=== PATIENT | male | born 1965 | race Caucasian/White ===

== ENCOUNTER 2020-07-23 10:01 | Outpatient (REF) | payer BC, SELFPAY ==
[2020-07-23 11:21] LABS: Hematocrit 42.3 % (42-52); Hemoglobin 13.9 g/dl (14.0-18.0); Mean Corpuscular HGB Conc 32.9 g/dl (31.0-36.0); Mean Corpuscular Hemoglobin 29.5 pg (27.0-33.0); Mean Corpuscular Volume 89.8 fL (80-98); Mean Platelet Volume 12.3 fL (9.4-12.4); Platelet Count 168 X10*3/uL (160-400); Red Blood Count 4.71 X10*6/uL (4.60-5.80); Red Cell Distribution Width 12.6 % (11.0-16.0); White Blood Count 5.3 X10*3/uL (4.8-10.8)
[2020-07-23 11:36] LABS: Glucose Urine UA NEG (NEG); Leukocyte Esterase Urine NEG (NEG); Nitrite Urine NEG (NEG); PH 6.5 (5.0-8.0); Urine Blood NEG (NEG); Urine Ketones NEG (NEG); Urine Protein NEG (NEG-TRACE)
[2020-07-23 11:39] LABS: Appearance Urine CLEAR; Color Urine YELLOW
[2020-07-23 12:08] LABS: Mucus Urine 2+ /LPF; WBC Urine 0-2 /HPF (0-4)
[2020-07-23 12:16] LABS: Alanine Aminotransferase 29 U/L (0-40); Albumin Level 4.2 g/dL (3.5-5.0); Alkaline Phosphatase 102 U/L (39-117); Anion Gap 12 (12-20); Aspartate Amino Transferase 21 U/L (5-37); Bilirubin Total 0.6 mg/dL (0.0-1.0); Blood Urea Nitrogen 11 mg/dL (9-16); Calcium 9.2 mg/dL (8.4-10.2); Carbon Dioxide 28 mmol/L (22-29); Chloride 106 mmol/L (96-108); Cholesterol 168 mg/dL; Estimated Glomerular Filt Rate > 60; Glucose Fasting 93 mg/dL (60-99); HDL Cholesterol 42 mg/dL; LDL Cholesterol Calculated 103 mg/dl; Potassium 4.2 mmol/L (3.3-5.1); Sodium 142 mmol/L (135-145); Total Protein 6.9 g/dL (6.5-8.0); Triglycerides 118 mg/dL
[2020-07-23 12:50] LABS: Prostate Specific Antigen Scr 1.77 ng/mL (<0.05-4.0)
== END 2020-07-23 10:02 | disposition home or self-care (01) ==
LOC: HO.HMGCLDS 10:01
PROVIDERS: PCP Internal Medicine; Visit Provider Internal Medicine
DX: Z00.00 Encounter for general adult medical examination without abnormal findings (principal); E78.5 Hyperlipidemia, unspecified; R16.0 Hepatomegaly, not elsewhere classified; Z12.5 Encounter for screening for malignant neoplasm of prostate
CPT/HCPCS: 36415; 80053; 80061; 81001; 84153; 85027

== ENCOUNTER 2020-07-28 07:31 | Outpatient (REF) | payer BC, SELFPAY ==
--- NOTE | ~2020-07-28 | MR_ITS ---
EXAMINATION: MR ABDOMEN WITHOUT AND WITH CONTRAST CLINICAL INFORMATION: Hepatomegaly. COMPARISON: Previous abdominal ultrasound July [address] of the abdomen and pelvis July 2016 TECHNIQUE: MR abdomen was performed without and with use of 10 mL intravenous Gadavist gadolinium contrast. Postcontrast images are performed in multiphase dynamic sequences. Imaging was performed in 3 planes. FINDINGS: LUNG BASES: The visualized lung bases are unremarkable. LIVER, GALLBLADDER, AND BILIARY TREE: The liver is normal in size, shape and signal. There are 2 liver lesions. There is a 1.5 cm lesion in the high right lobe of the liver. This is low signal on T1-weighted sequences, high signal on T2-weighted sequences and demonstrates delayed peripheral puddling enhancement consistent with a benign hemangioma. There is a second smaller lesion in the peripheral lateral segment of the left lobe of the liver. This measures 1 cm. This is low signal on T1-weighted sequences, high signal on T2-weighted sequences and demonstrates delayed peripheral enhancement consistent with a benign hemangioma. This is unchanged from previous CT scan. This was not appreciated by ultrasound. No other liver lesion is seen. The gallbladder is normal-appearing. There is no biliary duct dilatation. PANCREAS: There is a tiny cyst in the body of the pancreas. This measures 3 mm and abuts the main pancreatic duct. The pancreas is otherwise normal. The main pancreatic duct does not appear dilated. SPLEEN: Normal. ADRENAL GLANDS: Normal. KIDNEYS AND URETERS: There are bilateral renal peripelvic cysts. The kidneys are otherwise unremarkable. GASTROINTESTINAL TRACT: No bowel obstruction. No ascites or fluid collection. ABDOMINAL WALL: No significant hernia is appreciated. LYMPH NODES: No lymphadenopathy. VASCULAR: Unremarkable. OSSEOUS STRUCTURES: Marrow signal normal. There is degenerative disc disease of the spine. MR/MR abdomen wo/w con IMPRESSION: Stable liver hemangiomas. The liver is otherwise normal. Bilateral renal peripelvic cysts. Small 3 mm cyst in the body of the pancreas.
== END 2020-07-28 07:32 | disposition home or self-care (01) ==
LOC: HO.MRI 07:31
PROVIDERS: Visit Provider Internal Medicine
DX: R16.0 Hepatomegaly, not elsewhere classified (principal)
CPT/HCPCS: 74183; A9585

== ENCOUNTER 2021-07-26 09:44 | Outpatient (REF) | payer BC, SELFPAY ==
[2021-07-26 11:41] LABS: Hematocrit 42.1 % (42.0-52.0); Mean Corpuscular HGB Conc 33.3 g/dl (31.0-36.0); Mean Corpuscular Hemoglobin 29.8 pg (27.0-33.0); Mean Corpuscular Volume 89.6 fL (80.0-98.0); Mean Platelet Volume 12.1 fL (9.4-12.4); Platelet Count 156 X10*3/uL (160-400); Red Cell Distribution Width 12.5 % (11.0-16.0); White Blood Count 4.9 X10*3/uL (4.8-10.8)
[2021-07-26 11:43] LABS: Appearance Urine CLEAR; Color Urine YELLOW; Glucose Urine UA NEG (NEG); Leukocyte Esterase Urine NEG (NEG); Nitrite Urine NEG (NEG); PH 5.5 (5.0-8.0); Specific Gravity - Urine 1.025 (1.005-1.025); Urine Blood TRACE (NEG); Urine Ketones NEG (NEG); Urine Protein NEG (NEG-TRACE)
[2021-07-26 12:08] LABS: Mucus Urine 2+ /LPF; RBC Urine 0-2 /HPF (0); WBC Urine 0 /HPF (0-4)
[2021-07-26 12:15] LABS: Prostate Specific Antigen Scr 1.44 ng/mL (<0.05-4.0)
[2021-07-26 12:24] LABS: Alanine Aminotransferase 25 U/L (0-40); Alkaline Phosphatase 92 U/L (39-117); Anion Gap 12 (12-20); Aspartate Amino Transferase 22 U/L (5-37); Bilirubin Total 0.7 mg/dL (0.0-1.0); Blood Urea Nitrogen 12 mg/dL (9-16); Calcium 9.4 mg/dL (8.4-10.2); Carbon Dioxide 27 mmol/L (22-29); Chloride 106 mmol/L (96-108); Cholesterol 183 mg/dL; Estimated Glomerular Filt Rate > 60; Glucose Fasting 97 mg/dL (60-99); HDL Cholesterol 49 mg/dL; LDL Cholesterol Calculated 111 mg/dl; Potassium 4.2 mmol/L (3.3-5.1); Sodium 141 mmol/L (135-145); Total Protein 6.9 g/dL (6.5-8.0); Triglycerides 119 mg/dL
== END 2021-07-26 09:45 | disposition home or self-care (01) ==
LOC: HO.HMGCLDS 09:44
PROVIDERS: PCP Internal Medicine; Visit Provider Internal Medicine
DX: Z00.00 Encounter for general adult medical examination without abnormal findings (principal); K21.9 Gastro-esophageal reflux disease without esophagitis; E78.5 Hyperlipidemia, unspecified; Z12.5 Encounter for screening for malignant neoplasm of prostate
CPT/HCPCS: 36415; 80053; 80061; 81001; 84153; 85027

== ENCOUNTER 2022-06-23 08:10 | Outpatient (REF) | payer OTHER, SELFPAY ==
[2022-06-23 11:19] LABS: Appearance Urine Clear; Color Urine Yellow; Glucose Urine UA Negative (Negative); Leukocyte Esterase Urine Negative (Negative); Nitrite Urine Negative (Negative); PH 5.5 (5.0-9.0); Specific Gravity - Urine 1.025 (1.005-1.025); UMIC TRIGGER UA YES; Urine Blood Trace (Negative); Urine Ketones Negative (Negative); Urine Protein Negative (Neg-Trace)
[2022-06-23 11:26] LABS: Bacteria Urine None Seen (None Seen); Hyaline Casts Urine 0-2 /LPF (0-2); Squamous Epithelial Cell Urine 0-2 /HPF (0-2); WBC Urine 0-5 /HPF (0-5)
[2022-06-23 13:08] LABS: Alanine Aminotransferase 26 U/L (0-40); Albumin Level 3.9 g/dL (3.5-5.0); Alkaline Phosphatase 92 U/L (39-117); Anion Gap 11 (12-20); Aspartate Amino Transferase 26 U/L (5-37); Bilirubin Total 0.7 mg/dL (0.0-1.0); Blood Urea Nitrogen 16 mg/dL (9-16); Carbon Dioxide 26 mmol/L (22-29); Chloride 107 mmol/L (96-108); Cholesterol 200 mg/dL; Estimated Glomerular Filt Rate > 60; Glucose Fasting 95 mg/dL (60-99); HDL Cholesterol 62 mg/dL; LDL Cholesterol Calculated 126 mg/dl; Sodium 140 mmol/L (135-145); Total Protein 6.6 g/dL (6.5-8.0); Triglycerides 62 mg/dL
[2022-06-23 13:16] LABS: Prostate Specific Antigen Scr 3.54 ng/mL (<0.05-4.0)
== END 2022-06-23 08:11 | disposition home or self-care (01) ==
LOC: HO.HMGCLDS 08:10
PROVIDERS: PCP Internal Medicine; Visit Provider Internal Medicine
DX: Z00.00 Encounter for general adult medical examination without abnormal findings (principal); E78.5 Hyperlipidemia, unspecified; K21.9 Gastro-esophageal reflux disease without esophagitis; Z12.5 Encounter for screening for malignant neoplasm of prostate
CPT/HCPCS: 36415; 80053; 80061; 81001; 84153

== ENCOUNTER 2022-08-15 16:10 | Outpatient (REF) | payer OTHER, SELFPAY ==
--- NOTE | ~2022-08-15 | US_ITS ---
EXAMINATION: US RETROPERITONEAL COMPLETE (RENAL) CLINICAL INFORMATION: Other microscopic hematuria. COMPARISON: MR abdomen without and with contrast 07/28/2020. Ultrasound abdomen complete 07/29/2018. TECHNIQUE: Real-time imaging of the kidneys and bladder. FINDINGS: RIGHT KIDNEY: 12.7 x 6.8 x 6.8 cm (SAG x AP x TRV). The kidney is normal in size, contour, and echogenicity. Renal cortical thickness is normal. No calculi or focal parenchymal lesions. No hydronephrosis. Multiple simple parapelvic cysts. No imaging follow-up is recommended. LEFT KIDNEY: 12.9 x 6.9 x 9.1 cm (SAG x AP x TRV). The kidney is normal in size, contour, and echogenicity. Renal cortical thickness is normal. No calculi or focal parenchymal lesions. No hydronephrosis. Multiple simple parapelvic cysts. No imaging follow-up is recommended. BLADDER: Well distended and normal. Bilateral ureteral jets are demonstrated. Prevoid bladder volume is 499 mL. Postvoid bladder volume is 125 mL. ADDITIONAL FINDINGS: Enlarged prostate measuring 75 mL. US/US retroperitoneal comp IMPRESSION: Enlarged prostate measuring 75 mL. Distended urinary bladder with postvoid residual volume of 125 mL.
== END 2022-08-15 16:11 | disposition home or self-care (01) ==
LOC: HO.US 16:10
PROVIDERS: PCP Internal Medicine; Visit Provider Internal Medicine
DX: R31.29 Other microscopic hematuria (principal)
CPT/HCPCS: 76770

== ENCOUNTER 2022-08-17 15:13 | Outpatient (REF) | payer OTHER, SELFPAY ==
--- NOTE | ~2022-08-17 | US_ITS ---
Examination: US PROSTATE CLINICAL INDICATION: Microscopic hematuria, elevated PSA. COMPARISON: 08/15/2022. TECHNIQUE: Ultrasound imaging of the prostate gland was performed transurethrally. FINDINGS: There is an irregular enlarged prostate gland with volume of 100 mL. There is echogenic calcification in the central gland on either side of the urethra. Visualized seminal vesicles are unremarkable. US/US prostate volume IMPRESSION: Limited exam as patient was not prepped. There was some bowel peristalsis seen. The prostate is significantly enlarged measuring 100ml volume. On the previous exam, it measured 75 mL. There is dystrophic calcification in the central gland.
== END 2022-08-17 15:14 | disposition home or self-care (01) ==
LOC: HO.US 15:13
PROVIDERS: Visit Provider Internal Medicine
DX: R31.29 Other microscopic hematuria (principal); R97.20 Elevated prostate specific antigen [PSA]
CPT/HCPCS: 76872

== ENCOUNTER 2023-02-10 07:25 | Outpatient (REF) | payer OTHER, SELFPAY ==
[2023-02-10 11:55] LABS: Cholesterol 164 mg/dL (<200); HDL Cholesterol 49 mg/dL (>40); LDL Cholesterol Calculated 92 mg/dL (<100); Triglycerides 119 mg/dL (<150)
[2023-02-10 12:16] LABS: PSA,Total (Free>4and<10) 1.47 ng/mL (0.00-4.00)
== END 2023-02-10 07:26 | disposition home or self-care (01) ==
LOC: HO.HMGCLDS 07:25
PROVIDERS: PCP Internal Medicine; Visit Provider Internal Medicine
DX: Z12.5 Encounter for screening for malignant neoplasm of prostate (principal); R97.20 Elevated prostate specific antigen [PSA]; R16.0 Hepatomegaly, not elsewhere classified; E78.5 Hyperlipidemia, unspecified
CPT/HCPCS: 36415; 80061; 84153

== ENCOUNTER 2023-07-28 07:59 | Outpatient (REF) | payer OTHER, SELFPAY ==
[2023-07-28 11:06] LABS: MANUAL DIFF FLAG NO
[2023-07-28 11:15] LABS: Basophils Percent Auto 0.8 % (0-2); Eosinophils Absolute Auto 0.4 X10*3/uL (0.0-0.4); Eosinophils Percent Auto 7.4 % (0-4); Hematocrit 41.3 % (42.0-52.0); Hemoglobin 13.8 g/dl (14.0-18.0); Imm Gran Abs Auto 0.02 X10*3/uL (0.00-0.03); Imm Gran Pct Auto 0.4 % (0.0-0.4); Lymphocytes Absolute Auto 1.4 X10*3/uL (1.2-4.9); Lymphocytes Percent Auto 29.5 % (20-40); Mean Corpuscular HGB Conc 33.4 g/dl (31.0-36.0); Mean Corpuscular Hemoglobin 30.3 pg (27.0-33.0); Mean Corpuscular Volume 90.6 fL (80.0-98.0); Mean Platelet Volume 11.6 fL (9.4-12.4); Monocytes Absolute Auto 0.5 X10*3/uL (0.1-1.2); Monocytes Percent Auto 10.7 % (2-11); Neutrophils Absolute Auto 2.5 x10*3/uL (2.0-8.3); Neutrophils Percent Auto 51.2 % (45-73); Platelet Count 170 X10*3/uL (160-400); Red Blood Count 4.56 X10*6/uL (4.60-5.80); Red Cell Distribution Width 12.7 % (11.0-16.0); White Blood Count 4.8 X10*3/uL (4.8-10.8)
[2023-07-28 11:26] LABS: Alanine Aminotransferase 32 U/L (0-40); Alkaline Phosphatase 89 U/L (39-117); Anion Gap 10 (12-20); Aspartate Amino Transferase 28 U/L (5-37); Bilirubin Total 0.7 mg/dL (0.0-1.0); Blood Urea Nitrogen 14 mg/dL (9-16); Calcium 9.3 mg/dL (8.4-10.2); Carbon Dioxide 26 mmol/L (22-29); Chloride 108 mmol/L (96-108); Cholesterol 172 mg/dL (<200); Estimated Glomerular Filt Rate > 60; Glucose Fasting 95 mg/dL (60-99); HDL Cholesterol 61 mg/dL (>40); LDL Cholesterol Calculated 99 mg/dL (<100); Sodium 140 mmol/L (135-145); Total Protein 6.9 g/dL (6.5-8.0); Triglycerides 64 mg/dL (<150)
[2023-07-28 11:42] LABS: PSA,Total (Free>4and<10) 2.34 ng/mL (0.00-4.00)
== END 2023-07-28 08:00 | disposition home or self-care (01) ==
LOC: HO.HMGCLDS 07:59
PROVIDERS: PCP Internal Medicine; Visit Provider Internal Medicine
DX: Z12.5 Encounter for screening for malignant neoplasm of prostate (principal); R97.20 Elevated prostate specific antigen [PSA]; R16.0 Hepatomegaly, not elsewhere classified; E78.5 Hyperlipidemia, unspecified
CPT/HCPCS: 36415; 80053; 80061; 84153; 85025

== ENCOUNTER 2023-07-31 11:40 | Outpatient (AMB) | payer OTHER, SELFPAY ==
[2023-07-31 11:42] VITALS: BP 126/78; PULSE 69; O2SAT 97; BMI 31.2
--- NOTE | 2023-07-31 11:42 | A.OFFPC_ITS ---
Vital Signs 07/31/23 11:42 Height 5 ft 11 in Weight 224 lb BMI 31.2 BP 126/78 Blood Pressure Location Lt brachial Position Sitting Pulse 69 Pulse Source Pulse Oximeter Pulse Oximetry (%) 97 Oxygen Delivery Method Room Air Intake Visit Reasons: PE Intake Note: Pt is here today for PE. Allergies No Known Allergies Allergy (Verified 07/31/23 11:47) Medication List - Last Reconciled 07/31/23 by Terese Edwards MD atorvastatin 80 mg PO DAILY Tobacco use date assessed: 07/31/23 Dental Screening Dental Screen Date: 07/31/23 Did you have a dental visit in the last 12 months?: Yes Did you have a dental problem in the last 6 months where you did not have access to dental care?: No Was dental information given to patient?: Patient has dentist HPI PE HPI Details Patient presents for physical. He complains of recurrent GERD symptoms since stopped taking omeprazole for a few months ago. He denies dysphagia odynophagia hematochezia melena abdominal pain. [facility] Medical History (Updated 07/31/23 @ 12:44 by Terese Edwards MD) Abdominal pain Annual physical exam Liver mass Microscopic hematuria Surgical History (Updated 07/31/23 @ 12:43 by Terese Edwards MD) History of esophagogastroduodenoscopy (EGD) H/O colonoscopy Family History Father No problems noted. Mother No problems noted. Social History Housing: House Alcohol intake: current Alcohol intake frequency: a few times a month Patient Tobacco Use Status: Former Tobacco user e-Cigarette/Vaping Use: Never Used Current occupational status: employed Cognitive needs: No Hearing needs: No Vision needs: No Questionnaire PHQ-9 Over the last 2 weeks, how often have you been bothered by any of the following problems? 1. Little interest or pleasure in doing things: not at all 2. Feeling down, depressed, or hopeless: not at all 3. Trouble falling or staying asleep, or sleeping too much: not at all 4. Feeling tired or having little energy: not at all 5. Poor appetite or overeating: not at all 6. Feeling bad about yourself - or that you are a failure or have let yourself or your family down: not at all 7. Trouble concentrating on things, such as reading the newspaper or watching television: not at all 8. Moving or speaking so slowly that other people could have noticed. Or the opposite - being so fidgety or restless that you have been moving around a lot more than usual: not at all 9. Thoughts that you would be better off or of hurting yourself in some way: not at all Total score: 0 Depression Screening Interpretation: Negative Depression Screening Done: Yes Source: Developed by Drs. Diallo Elliott, Gudelia Pino, Garfield Coughlin and colleagues, with an educational fuad from [employer]. Thrive Questionnaire Date Thrive assessed: 07/31/23 I am a: Patient What is your living situation today?: I have a steady place to live Within the past 12 months, did the food you bought not last and you didn't have the money to get more?: Never true Within the past 12 months, did you worry whether your food would run out before you got money to buy more?: Never true Do you have trouble paying for medicines?: No Do you have trouble getting transportation to medical appointments?: No Do you have trouble paying your heating and electricity bill?: No Do you have trouble taking care of your child, family member or friend?: No Do you have trouble with day-to-day activities such as bathing, preparing meals, shopping, managing finances, etc.?: No Are you currently unemployed and looking for a job?: No Are you interested in more education?: No Please select the resources that you would like help with: None Currently or been in a relationship where the following occur: no concerns reported THRIVE Score: 0 AUDIT C Alcohol Use Questionnaire (AUDIT-C) 1. How often do you have a drink containing alcohol?: Monthly or less 2. How many drinks containing alcohol do you have on a typical day when you are drinking?: 1 or 2 3. How often do you have six or more drinks on one occasion?: Never Total Score: 1 MARCUS-7 AMB Questionnaire MARCUS-7 Date MARCUS - 7 assessed: 07/31/23 Feeling nervous, anxious, or on edge: 0 = Not at all Not being able to stop or control worryin = Not at all Worrying too much about different things: 0 = Not at all Trouble relaxin = Not at all Being so restless that it is hard to sit still: 0 = Not at all Becoming easily annoyed or irritable: 0 = Not at all Feeling afraid as if something awful might happen: 0 = Not at all Total MARCUS-7 score (0-4 normal; 5-9 mild; 10-14 moderate; 15-21 severe): 0 Source: Developed by Drs. Diallo Elliott, Gudelia Pino, Garfield Coughlin and colleagues, with an educational fuad from [employer]. Review of Systems Const All systems reviewed & are unremarkable except as noted in HPI and below Reports no additional complaints Eyes Reports no additional complaints ENT Reports no additional complaints Card Reports no additional complaints Resp Reports no additional complaints GI Reports no additional complaints Reports no additional complaints Skin/Breast Reports system reviewed and no additional complaints, except as documented Physical exam (Primary Care) Vital Signs: Last Vital Signs Pulse 69 07/31/23 11:42 BP 126/78 07/31/23 11:42 Pulse Ox 97 07/31/23 11:42 Oxygen Delivery Method Room Air 07/31/23 11:42 BMI result Body Mass Index 31.2 Tobacco/Smoking Status: Tobacco use Status Tobacco use date assessed 07/31/23 07/31/23 11:49 Patient Tobacco Use Status Former Tobacco user 07/31/23 11:49 e-Cigarette/Vaping Use Never Used 07/31/23 11:42 PHQ-9: PHQ-9 Score PHQ-9: Total score 0 07/31/23 11:50 Depression Screening Interpretation: Negative Thrive Assessment: Date of Thrive Assessment Date Thrive assessed 07/31/23 07/31/23 11:50 Currently or been in a relationship where the following occur: no concerns reported Const General: no acute distress HENMT Head: Yes normal to inspection Ears: hearing grossly normal bilaterally Face and sinus: Yes normal facial exam Mouth: Normal oral and palatal mucosa present Throat: Yes posterior oropharynx normal Eyes General: appearance normal, both eyes and all related structures Neck Neck: Yes no lymphadenopathy and Yes supple Resp Effort & Inspection: normal respiratory effort Auscultation: clear to auscultation bilaterally Cardio Rhythm: regular rhythm Heart sounds: S1 normal heart sound present and S2 normal heart sound present GI Inspection: Yes normal to inspection Palpation (GI): Soft to palpation Percussion: Yes normal to percussion Auscultation: normal bowel sounds Assessment and Plan Assessment & Plan (1) GERD (gastroesophageal reflux disease): Comment: Negative EGD in 2017 Code(s): K21.9 - Gastro-esophageal reflux disease without esophagitis Plan: Patient will restart omeprazole for 1 month and anti GERD diet discussed with the patient (2) Hyperlipidemia, unspecified: Code(s): E78.5 - Hyperlipidemia, unspecified Plan: Continue statin (3) Annual physical exam: Code(s): Z00.00 - Encounter for general adult medical examination without abnormal findings Plan: Well-balanced diet regular physical activity weight loss discussed with the patient. (4) H/O colonoscopy: Comment: 01/2017 Code(s): Z98.890 - Other specified postprocedural states Orders: Orders Lipid Panel 365 Days E78.5 - Hyperlipidemia, unspecified, Z00.00 - Encounter for general adult medical examination without abnormal findings Comprehensive Indian. Panel Fast 365 Days E78.5 - Hyperlipidemia, unspecified, Z00.00 - Encounter for general adult medical examination without abnormal findings Complete Blood Count Auto Diff 365 Days E78.5 - Hyperlipidemia, unspecified, Z00.00 - Encounter for general adult medical examination without abnormal findings PSA,Total (Free>4and<10) 365 Days E78.5 - Hyperlipidemia, unspecified, Z00.00 - Encounter for general adult medical examination without abnormal findings UA w Microscopic 365 Days E78.5 - Hyperlipidemia, unspecified, Z00.00 - Encounter for general adult medical examination without abnormal findings Medications: New omeprazole 40 mg PO DAILY 30 caps 2RF Coding Level of Care Code Est Pt Prev Care 40-64y(08330) Diagnoses GERD (gastroesophageal reflux disease) K21.9 Hyperlipidemia, unspecified E78.5 Annual physical exam Z00.00 H/O colonoscopy Z98.890
== END 2023-07-31 12:47 | disposition home or self-care (01) ==
PROVIDERS: PCP Internal Medicine; Visit Provider Internal Medicine
DX: K21.9 Gastro-esophageal reflux disease without esophagitis (principal); E78.5 Hyperlipidemia, unspecified; Z00.00 Encounter for general adult medical examination without abnormal findings; Z98.890 Other specified postprocedural states
CPT/HCPCS: 99396

== ENCOUNTER 2024-06-11 13:22 | Outpatient (REF) | payer OTHER, SELFPAY ==
[2024-06-11 16:27] LABS: Uric Acid 5.5 mg/dL (3.4-7.0)
[2024-06-11 16:56] LABS: Erythrocyte Sedimentation Rate 9 MM/HR (0-15)
[2024-06-12 20:28] LABS: Lyme Blot 2.82 index
[2024-06-15 14:26] LABS: Lyme Abs Screen POSITIVE
[2024-06-15 14:34] LABS: 18 KD (IgG) Band NON-REACTIVE; 23 KD (IgG) Band NON-REACTIVE; 23 KD (IgM) Band NON-REACTIVE; 28 KD (IgG) Band NON-REACTIVE; 30 KD (IgG) Band NON-REACTIVE; 39 KD (IgM) Band NON-REACTIVE; 39KD (IgG) Band NON-REACTIVE; 41 KD (IgM) Band NON-REACTIVE; 41KD (IgG) Band REACTIVE; 45 KD (IgG) Band REACTIVE; 58 KD (IgG) Band NON-REACTIVE; 66 KD (IgG) Band NON-REACTIVE; 93 KD (IgG) Band NON-REACTIVE; Lyme IgG Blot Interp NEGATIVE (NEGATIVE); Lyme IgM Blot Interp NEGATIVE (NEGATIVE)
== END 2024-06-11 13:23 | disposition home or self-care (01) ==
LOC: HO.HMGCLDS 13:22
PROVIDERS: PCP Internal Medicine; Visit Provider Internal Medicine
DX: G56.03 Carpal tunnel syndrome, bilateral upper limbs (principal)
CPT/HCPCS: 36415; 84550; 85652; 86617; 86618

== ENCOUNTER 2024-06-11 13:22 | Outpatient (AMB) | payer OTHER, SELFPAY ==
[2024-06-11 13:55] VITALS: BP 120/68; PULSE 76; O2SAT 96; BMI 32.1
--- NOTE | 2024-06-11 13:55 | A.OFFPC_ITS ---
Vital Signs 06/11/24 13:55 Height 5 ft 11 in Weight 230 lb BMI 32.1 BP 120/68 Blood Pressure Location Rt brachial Position Sitting Pulse 76 Pulse Source Pulse Oximeter Pulse Oximetry (%) 96 Oxygen Delivery Method Room Air Intake Visit Reasons: L wrist pain, swelling Intake Note: Pt is here today for a sick visit. Pt c/o L hand pain and swelling since Sunday.Pt also c/o tingiling and numbess in his hands. Allergies No Known Allergies Allergy (Verified 06/11/24 13:59) Medication List - Last Reconciled 06/11/24 by Terese Edwards MD atorvastatin 80 mg PO DAILY meloxicam 15 mg PO DAILY omeprazole 40 mg PO DAILY Tobacco use date assessed: 06/11/24 Dental Screening Dental Screen Date: 06/11/24 HPI L wrist pain, swelling HPI Details Pt c/o R wrist and hand pain and swelling for 3 days. He denies any injury. Patient return to work after 2 weeks of vacation and has been using his hands a lot. Patient complains of tingling and numbness sensation, burning pain of both hands: thumb, 2nd and 3rd fingers. 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 Hypertension is controlled on atorvastatin [facility] Medical History (Updated 06/11/24 @ 15:32 by Terese Edwards MD) Abdominal pain Annual physical exam Liver mass Microscopic hematuria Surgical History (Updated 07/31/23 @ 12:43 by Terese Edwards MD) History of esophagogastroduodenoscopy (EGD) H/O colonoscopy Family History Father No problems noted. Mother No problems noted. Social History Housing: House Alcohol intake: current Alcohol intake frequency: a few times a month Patient Tobacco Use Status: Former Tobacco user e-Cigarette/Vaping Use: Never Used service: No Current occupational status: employed Cognitive needs: No Hearing needs: No Vision needs: No Questionnaire PHQ-9 Over the last 2 weeks, how often have you been bothered by any of the following problems? 8. Moving or speaking so slowly that other people could have noticed. Or the opposite - being so fidgety or restless that you have been moving around a lot more than usual: not at all Source: Developed by Drs. Diallo Elliott, Gudelia Pino, Garfield Coughlin and colleagues, with an educational fuad from [employer] Thrive Questionnaire Date Thrive assessed: 07/31/23 I am a: Patient What is your living situation today?: I choose not to answer this question Within the past 12 months, did the food you bought not last and you didn't have the money to get more?: I choose not to answer this question Within the past 12 months, did you worry whether your food would run out before you got money to buy more?: I choose not to answer this question Do you have trouble paying for medicines?: I choose not to answer this question Do you have trouble getting transportation to medical appointments?: I choose not to answer this question Do you have trouble paying your heating and electricity bill?: I choose not to answer this question Do you have trouble taking care of your child, family member or friend?: I choose not to answer this question Do you have trouble with day-to-day activities such as bathing, preparing meals, shopping, managing finances, etc.?: I choose not to answer this question Are you currently unemployed and looking for a job?: I choose not to answer this question Are you interested in more education?: I choose not to answer this question Please select the resources that you would like help with: None Currently or been in a relationship where the following occur: I choose not to answer THRIVE Score: 0 AUDIT C Alcohol Use Questionnaire (AUDIT-C) 1. How often do you have a drink containing alcohol?: Monthly or less 2. How many drinks containing alcohol do you have on a typical day when you are drinking?: 1 or 2 3. How often do you have six or more drinks on one occasion?: Never Total Score: 1 MARCUS-7 AMB Questionnaire MARCUS-7 Date MARCUS - 7 assessed: 07/31/23 Feeling nervous, anxious, or on edge: 0 = Not at all Not being able to stop or control worryin = Not at all Worrying too much about different things: 0 = Not at all Trouble relaxin = Not at all Being so restless that it is hard to sit still: 0 = Not at all Becoming easily annoyed or irritable: 0 = Not at all Feeling afraid as if something awful might happen: 0 = Not at all Total MARCUS-7 score (0-4 normal; 5-9 mild; 10-14 moderate; 15-21 severe): 0 Source: Developed by Drs. Diallo Elliott, Gudelia Pino, Garfield Coughlin and colleagues, with an educational fuad from [employer] Review of Systems Const All systems reviewed & are unremarkable except as noted in HPI and below ENT Reports no additional complaints Card Reports no additional complaints Resp Reports no additional complaints GI Reports no additional complaints Reports no additional complaints Physical exam (Primary Care) Vital Signs: Last Vital Signs Pulse 76 06/11/24 13:55 BP 120/68 06/11/24 13:55 Pulse Ox 96 06/11/24 13:55 Oxygen Delivery Method Room Air 06/11/24 13:55 BMI result Body Mass Index 32.1 Tobacco/Smoking Status: Tobacco use Status Tobacco use date assessed 06/11/24 06/11/24 14:00 Patient Tobacco Use Status Former Tobacco user 06/11/24 13:55 e-Cigarette/Vaping Use Never Used 06/11/24 13:55 Thrive Assessment: Date of Thrive Assessment Date Thrive assessed 07/31/23 06/11/24 13:55 Currently or been in a relationship where the following occur: I choose not to answer Const General: no acute distress HENMT Face and sinus: Yes normal facial exam Neck Neck: Yes supple Resp Effort & Inspection: normal respiratory effort Auscultation: clear to auscultation bilaterally Cardio Rhythm: regular rhythm Heart sounds: S1 normal heart sound present and S2 normal heart sound present Extrem Other: There is a soft tissue swelling, slight erythema and warmth decreased range of motion of the left wrist. Coding Level of Care Code Est Pt Level 4 (64672) Diagnoses Carpal tunnel syndrome on both sides G56.03 Left wrist pain M25.532 Hyperlipidemia, unspecified E78.5 Assessment & Plan Assessment & Plan (1) Carpal tunnel syndrome on both sides: Code(s): G56.03 - Carpal tunnel syndrome, bilateral upper limbs Category: Medical Plan: Referred for nerve conduction study to evaluate for carpal tunnel syndrome (2) Left wrist pain: Code(s): M25.532 - Pain in left wrist Category: Medical Plan: For tendinitis and arthritis uric acid level will be checked meloxicam 15 mg daily for 10 days is prescribed. (3) Hyperlipidemia, unspecified: Code(s): E78.5 - Hyperlipidemia, unspecified Category: Medical Plan: Continue statin Orders: Orders NE nerve conduction velocity Today G56.03 - Carpal tunnel syndrome, bilateral upper limbs Uric Acid Today G56.03 - Carpal tunnel syndrome, bilateral upper limbs Lyme IgG/IgM w/reflex to WB Today G56.03 - Carpal tunnel syndrome, bilateral upper limbs Erythrocyte Sedimentation Rate Today G56.03 - Carpal tunnel syndrome, bilateral upper limbs Medications: New meloxicam 15 mg PO DAILY 10 tabs 0RF
== END 2024-06-11 15:33 | disposition home or self-care (01) ==
PROVIDERS: PCP Internal Medicine; Visit Provider Internal Medicine
DX: G56.03 Carpal tunnel syndrome, bilateral upper limbs (principal); M25.532 Pain in left wrist; E78.5 Hyperlipidemia, unspecified

== ENCOUNTER 2024-06-24 12:02 | Outpatient (AMB) | payer OTHER, SELFPAY ==
[2024-06-24 12:11] VITALS: BP 130/70; PULSE 72; O2SAT 98; BMI 32.4
--- NOTE | 2024-06-24 12:11 | A.OFFPC_ITS ---
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 The swelling and pain improved. Patient was found to have positive 1 band of IgG for Lyme disease and was prescribed doxycycline for 10 days which he completed. Patient denies fever chills rash joint pain or swelling. [facility] Medical History Abdominal pain Annual physical exam Liver mass Microscopic hematuria Surgical History History of esophagogastroduodenoscopy (EGD) H/O colonoscopy Family History Father No problems noted. Mother No problems noted. Social History Housing: House Alcohol intake: current Alcohol intake frequency: a few times a month Patient Tobacco Use Status: Former Tobacco user e-Cigarette/Vaping Use: Never Used service: No Current occupational status: employed Cognitive needs: No Hearing needs: No Vision needs: No Questionnaire PHQ-9 Over the last 2 weeks, how often have you been bothered by any of the following problems? 1. Little interest or pleasure in doing things: not at all 2. Feeling down, depressed, or hopeless: not at all 3. Trouble falling or staying asleep, or sleeping too much: not at all 4. Feeling tired or having little energy: not at all 5. Poor appetite or overeating: not at all 6. Feeling bad about yourself - or that you are a failure or have let yourself or your family down: not at all 7. Trouble concentrating on things, such as reading the newspaper or watching television: not at all 8. Moving or speaking so slowly that other people could have noticed. Or the opposite - being so fidgety or restless that you have been moving around a lot more than usual: not at all 9. Thoughts that you would be better off or of hurting yourself in some way: not at all Total score: 0 Depression Screening Interpretation: Negative Depression Screening Done: Yes 29553 - PHQ-9 Billing: Yes Source: Developed by Drs. Diallo Elliott, Gudelia Pino, Garfield Coughlin and colleagues, with an educational fuad from [employer]. Thrive Questionnaire Date Thrive assessed: 06/24/24 I am a: Patient What is your living situation today?: I choose not to answer this question Within the past 12 months, did the food you bought not last and you didn't have the money to get more?: I choose not to answer this question Within the past 12 months, did you worry whether your food would run out before you got money to buy more?: I choose not to answer this question Do you have trouble paying for medicines?: I choose not to answer this question Do you have trouble getting transportation to medical appointments?: I choose not to answer this question Do you have trouble paying your heating and electricity bill?: I choose not to answer this question Do you have trouble taking care of your child, family member or friend?: I choose not to answer this question Do you have trouble with day-to-day activities such as bathing, preparing meals, shopping, managing finances, etc.?: I choose not to answer this question Are you currently unemployed and looking for a job?: I choose not to answer this question Are you interested in more education?: I choose not to answer this question Please select the resources that you would like help with: None Currently or been in a relationship where the following occur: I choose not to answer THRIVE Score: 0 AUDIT C Alcohol Use Questionnaire (AUDIT-C) 1. How often do you have a drink containing alcohol?: Monthly or less 2. How many drinks containing alcohol do you have on a typical day when you are drinking?: 1 or 2 3. How often do you have six or more drinks on one occasion?: Never Total Score: 1 Score Reviewed/Action Taken: Yes MARCUS-7 AMB Questionnaire MARCUS-7 Date MARCUS - 7 assessed: 06/24/24 Feeling nervous, anxious, or on edge: 0 = Not at all Not being able to stop or control worryin = Not at all Worrying too much about different things: 0 = Not at all Trouble relaxin = Not at all Being so restless that it is hard to sit still: 0 = Not at all Becoming easily annoyed or irritable: 0 = Not at all Feeling afraid as if something awful might happen: 0 = Not at all Total MARCUS-7 score (0-4 normal; 5-9 mild; 10-14 moderate; 15-21 severe): 0 Source: Developed by Drs. Diallo Elliott, Gudelia Pino, Garfield Coughlin and colleagues, with an educational fuad from [employer]. MARCUS-7 Assessment Billing MARCUS-7 Assessment Tool: MARCUS-7 Assessment 47680 Review of Systems Const All systems reviewed & are unremarkable except as noted in HPI and below ENT Reports no additional complaints Card Reports no additional complaints Resp Reports no additional complaints GI Reports no additional complaints Reports no additional complaints Physical exam (Primary Care) Vital Signs: Last Vital Signs Pulse 72 06/24/24 12:11 BP 130/70 06/24/24 12:11 Pulse Ox 98 06/24/24 12:11 BMI result Body Mass Index 32.4 Tobacco/Smoking Status: Tobacco use Status Tobacco use date assessed 06/11/24 06/24/24 12:13 Patient Tobacco Use Status Former Tobacco user 06/24/24 12:13 e-Cigarette/Vaping Use Never Used 06/24/24 12:13 PHQ-9: PHQ-9 Score PHQ-9: Total score 0 06/24/24 12:13 Depression Screening Interpretation: Negative Thrive Assessment: Date of Thrive Assessment Date Thrive assessed 06/24/24 06/24/24 12:13 Currently or been in a relationship where the following occur: I choose not to answer Const General: no acute distress HENMT Head: Yes normal to inspection Neck Neck: Yes supple Resp Effort & Inspection: normal respiratory effort Auscultation: clear to auscultation bilaterally Cardio Rhythm: regular rhythm Heart sounds: S1 normal heart sound present and S2 normal heart sound present Extrem Other: Left hand dorsum slight soft tissue swelling no erythema warmth or tenderness Coding Level of Care Code Est Pt Level 3 (26312) Diagnoses Left wrist pain M25.532 Hyperlipidemia, unspecified E78.5 Additional Codes MARCUS-7 Assessment Billing - MARCUS-7 Assessment Tool: MARCUS-7 Assessment 10816 ([id number]) PHQ-9 - 22517 - PHQ-9 Billing: Yes ([id number]) Assessment & Plan Assessment & Plan (1) Left wrist pain: Code(s): M25.532 - Pain in left wrist Category: Medical Plan: Continue meloxicam as needed (2) Hyperlipidemia, unspecified: Code(s): E78.5 - Hyperlipidemia, unspecified Category: Medical Plan: Continue statin
== END 2024-06-24 13:23 | disposition home or self-care (01) ==
PROVIDERS: PCP Internal Medicine; Visit Provider Internal Medicine
DX: M25.532 Pain in left wrist (principal); E78.5 Hyperlipidemia, unspecified

== ENCOUNTER → 2024-06-24 12:02 | Outpatient (BNVA) | payer OTHER, SELFPAY | PROVIDERS: PCP Internal Medicine; Visit Provider Internal Medicine | DX: M25.532 Pain in left wrist (principal); E78.5 Hyperlipidemia, unspecified; Z79.899 Other long term (current) drug therapy | CPT/HCPCS: 96127 ==

== ENCOUNTER 2024-07-26 08:22 | Outpatient (REF) | payer OTHER, SELFPAY ==
[2024-07-26 11:18] LABS: MANUAL DIFF FLAG NO
[2024-07-26 11:26] LABS: Basophils Percent Auto 0.7 % (0-2); Eosinophils Absolute Auto 0.3 X10*3/uL (0.0-0.4); Hematocrit 41.9 % (42.0-52.0); Imm Gran Abs Auto 0.02 X10*3/uL (0.00-0.03); Imm Gran Pct Auto 0.4 % (0.0-0.4); Lymphocytes Absolute Auto 1.3 X10*3/uL (1.2-4.9); Lymphocytes Percent Auto 22.2 % (20-40); Mean Corpuscular HGB Conc 33.4 g/dl (31.0-36.0); Mean Corpuscular Hemoglobin 30.1 pg (27.0-33.0); Mean Corpuscular Volume 90.1 fL (80.0-98.0); Mean Platelet Volume 11.6 fL (9.4-12.4); Monocytes Absolute Auto 0.6 X10*3/uL (0.1-1.2); Monocytes Percent Auto 10.5 % (2-11); Neutrophils Absolute Auto 3.5 x10*3/uL (2.0-8.3); Neutrophils Percent Auto 61.2 % (45-73); Platelet Count 181 X10*3/uL (160-400); Red Blood Count 4.65 X10*6/uL (4.60-5.80); Red Cell Distribution Width 12.9 % (11.0-16.0); White Blood Count 5.6 X10*3/uL (4.8-10.8)
[2024-07-26 11:32] LABS: Appearance Urine Clear; Color Urine Yellow; Glucose Urine UA Negative (Negative); Leukocyte Esterase Urine Negative (Negative); Nitrite Urine Negative (Negative); PH 5.5 (5.0-9.0); UMIC TRIGGER UA YES; Urine Blood Trace (Negative); Urine Ketones Negative (Negative); Urine Protein Negative (Neg-Trace)
[2024-07-26 11:38] LABS: Bacteria Urine None Seen (None Seen); Hyaline Casts Urine 0-2 /LPF (0-2); RBC Urine 0-2 /HPF (0-2); Squamous Epithelial Cell Urine 0-2 /HPF (0-2); WBC Urine 0-5 /HPF (0-5)
[2024-07-26 11:54] LABS: Alanine Aminotransferase 36 U/L (0-40); Alkaline Phosphatase 101 U/L (39-117); Anion Gap 10 (12-20); Aspartate Amino Transferase 33 U/L (5-37); Bilirubin Total 0.6 mg/dL (0.0-1.0); Blood Urea Nitrogen 14 mg/dL (9-16); Calcium 9.5 mg/dL (8.4-10.2); Carbon Dioxide 25 mmol/L (22-29); Chloride 111 mmol/L (96-108); Cholesterol 194 mg/dL (<200); Estimated Glomerular Filt Rate > 60; Glucose Fasting 91 mg/dL (60-99); HDL Cholesterol 61 mg/dL (>40); LDL Cholesterol Calculated 118 mg/dL (<100); Potassium 4.2 mmol/L (3.3-5.1); Sodium 142 mmol/L (135-145); Total Protein 7.6 g/dL (6.5-8.0); Triglycerides 76 mg/dL (<150)
[2024-07-26 11:58] LABS: PSA,Total (Free>4and<10) 6.73 ng/mL (0.00-4.00)
[2024-07-28 11:29] LABS: Free Prostate Spec Ag 2.3 ng/mL; Percent Free Prostate Spec Ag 33 % (calc) (>25)
== END 2024-07-26 08:23 | disposition home or self-care (01) ==
LOC: HO.HMGCLDS 08:22
PROVIDERS: PCP Internal Medicine; Visit Provider Internal Medicine
DX: E78.5 Hyperlipidemia, unspecified (principal); Z00.00 Encounter for general adult medical examination without abnormal findings; Z12.5 Encounter for screening for malignant neoplasm of prostate
CPT/HCPCS: 36415; 80053; 80061; 81001; 84153; 84154; 85025

== ENCOUNTER 2024-08-01 11:45 | Outpatient (AMB) | payer OTHER, SELFPAY ==
--- NOTE | 2024-08-01 11:48 | MHC.PC.OV ---
Vital Signs 08/01/24 11:49 Height 5 ft 11 in Weight 226 lb BMI 31.5 BP 120/74 Blood Pressure Location Lt brachial Position Sitting Respiration 18 Pulse 65 Pulse Source Pulse Oximeter Temp 98.3 F Temp Source Oral Pulse Oximetry (%) 95 Oxygen Delivery Method Room Air Intake Visit Reasons: Annual PE Intake Note: Pt is here today for PE. Allergies No Known Allergies Allergy (Verified 08/01/24 11:49) Medication List - Last Reconciled 08/01/24 by Terese Edwards MD atorvastatin 80 mg PO DAILY omeprazole 40 mg PO DAILY Tobacco use date assessed: 08/01/24 Dental Screening Dental Screen Date: 06/11/24 HPI Annual PE HPI Details Pt presents for PE. PFSH Medical History (Updated 08/01/24 @ 12:50 by Terese Edwards MD) Abdominal pain Annual physical exam Liver mass Microscopic hematuria Surgical History (Updated 08/01/24 @ 12:39 by Terese Edwards MD) History of esophagogastroduodenoscopy (EGD) H/O colonoscopy Family History Father No problems noted. Mother No problems noted. Social History Housing: House Alcohol intake: current Alcohol intake frequency: a few times a month Patient Tobacco Use Status: Former Tobacco user e-Cigarette/Vaping Use: Never Used service: No Current occupational status: employed Cognitive needs: No Hearing needs: No Vision needs: No Questionnaire Thrive Questionnaire Date Thrive assessed: 06/11/24 I am a: Patient What is your living situation today?: I choose not to answer this question Within the past 12 months, did the food you bought not last and you didn't have the money to get more?: I choose not to answer this question Within the past 12 months, did you worry whether your food would run out before you got money to buy more?: I choose not to answer this question Do you have trouble paying for medicines?: I choose not to answer this question Do you have trouble getting transportation to medical appointments?: I choose not to answer this question Do you have trouble paying your heating and electricity bill?: I choose not to answer this question Do you have trouble taking care of your child, family member or friend?: I choose not to answer this question Do you have trouble with day-to-day activities such as bathing, preparing meals, shopping, managing finances, etc.?: I choose not to answer this question Are you currently unemployed and looking for a job?: I choose not to answer this question Are you interested in more education?: I choose not to answer this question Please select the resources that you would like help with: None Currently or been in a relationship where the following occur: I choose not to answer THRIVE Score: 0 AUDIT C Alcohol Use Questionnaire (AUDIT-C) 1. How often do you have a drink containing alcohol?: Monthly or less 2. How many drinks containing alcohol do you have on a typical day when you are drinking?: 1 or 2 3. How often do you have six or more drinks on one occasion?: Never Total Score: 1 MARCUS-7 AMB Questionnaire MARCUS-7 Date MARCUS - 7 assessed: 06/24/24 Source: Developed by Drs. Diallo Elliott, Gudelia Pino, Garfield Coughlin and colleagues, with an educational fuad from [employer]. Review of Systems Const All systems reviewed & are unremarkable except as noted in HPI and below Reports no additional complaints Eyes Reports no additional complaints ENT Reports no additional complaints Card Reports no additional complaints Resp Reports no additional complaints GI Reports no additional complaints Reports no additional complaints Musc Reports no additional complaints Physical exam (Primary Care) Vital Signs: Last Vital Signs Temp 98.3 F 08/01/24 11:49 Pulse 65 08/01/24 11:49 Resp 18 08/01/24 11:49 BP 120/74 08/01/24 11:49 Pulse Ox 95 08/01/24 11:49 Oxygen Delivery Method Room Air 08/01/24 11:49 BMI result Body Mass Index 31.5 Tobacco/Smoking Status: Tobacco use Status Tobacco use date assessed 08/01/24 08/01/24 11:49 Patient Tobacco Use Status Former Tobacco user 08/01/24 11:49 e-Cigarette/Vaping Use Never Used 08/01/24 11:49 Thrive Assessment: Date of Thrive Assessment Date Thrive assessed 06/11/24 08/01/24 11:49 Currently or been in a relationship where the following occur: I choose not to answer Const General: no acute distress HENMT Head: Yes normal to inspection Ears: hearing grossly normal bilaterally Mouth: Normal oral and palatal mucosa present Throat: Yes posterior oropharynx normal Eyes General: appearance normal, both eyes and all related structures Neck Neck: Yes no lymphadenopathy and Yes supple Resp Effort & Inspection: normal respiratory effort Auscultation: clear to auscultation bilaterally Cardio Rhythm: regular rhythm Heart sounds: S1 normal heart sound present and S2 normal heart sound present GI Inspection: Yes normal to inspection Palpation (GI): Soft to palpation Percussion: Yes normal to percussion Auscultation: normal bowel sounds Coding Level of Care Code Est Pt Prev Care 40-64y(90847) Diagnoses Elevated PSA R97.20 Annual physical exam Z00.00 Hyperlipidemia, unspecified E78.5 Carpal tunnel syndrome on both sides G56.03 H/O colonoscopy Z98.890 Assessment & Plan Assessment & Plan (1) Elevated PSA: Comment: PSA 7.0 07/2024 from 2.3 07/2023, refer to [facility], patient is established Code(s): R97.20 - Elevated prostate specific antigen [PSA] Category: Medical Plan: Referred to [facility] Urology (2) Annual physical exam: Code(s): Z00.00 - Encounter for general adult medical examination without abnormal findings Category: Medical Plan: Well-balanced diet regular physical activity discussed with the patient, he is due for colonoscopy and requested [facility] [facility] (3) Hyperlipidemia, unspecified: Code(s): E78.5 - Hyperlipidemia, unspecified Category: Medical Plan: cont statin (4) Carpal tunnel syndrome on both sides: Code(s): G56.03 - Carpal tunnel syndrome, bilateral upper limbs Category: Medical Plan: Patient will call to schedule EMG (5) H/O colonoscopy: Comment: 01/2014 Code(s): Z98.890 - Other specified postprocedural states Category: Surgical Plan: Overdue for colonoscopy referred to [facility] GI Orders: Orders Comprehensive [place]. Panel Fast 1 Year E78.5 - Hyperlipidemia, unspecified, R10.9 - Unspecified abdominal pain Lipid Panel 1 Year E78.5 - Hyperlipidemia, unspecified, R10.9 - Unspecified abdominal pain Complete Blood Count Auto Diff 1 Year E78.5 - Hyperlipidemia, unspecified, R10.9 - Unspecified abdominal pain UA w Microscopic 1 Year E78.5 - Hyperlipidemia, unspecified, R10.9 - Unspecified abdominal pain Referrals Urology Referral R97.20 - Elevated prostate specific antigen [PSA] Gastroenterology Referral Z00.00 - Encounter for general adult medical examination without abnormal findings Medications: New valacyclovir (Valtrex) 2,000 mg (2 x 1 gram) PO Q12H 12 tabs 1RF
[2024-08-01 11:49] VITALS: BP 120/74; PULSE 65; RESP 18; TEMP 36.8; O2SAT 95; BMI 31.5
--- OUTSIDE RECORDS SUMMARY | 2024-08-01 14:05 | XMS_ITS | Clinical Summary ---
Author Organization [facility] Address [address] [place] [address] Care Team Providers Care Manager Landscape Name Role Phone Unavailable Primary Care Provider Unavailabl e Social History Tobacco Use Types Packs/Day Years Used Date Smoking Tobacco: Never Assessed Sex and Gender Information Value Date Recorded Sex Assigned at Not on file Legal Sex Male 1:47 AM EST Gender Identity Not on file Sexual Orientation Not on file Last Filed Vital Signs Vital Sign Reading Time Taken Comments Blood Pressure 130/70 07/08/2023 11:43 AM EST Pulse 68 07/08/2023 11:43 AM EST Temperature - - Respiratory Rate - - Oxygen Saturation - - Inhaled Oxygen Concentration - - Weight 105 kg (230 lb 6.4 oz) 07/08/2023 11:43 A M EST Height 177.8 cm (5' 10 ) 07/08/2023 11:43 AM EST Body Mass Index 33.06 07/08/2023 11:43 AM EST Plan of Treatment Health Maintenance Due Date Last Done Comments DTaP,Tdap,and Td Vaccines (1 - Tdap) 1983 Pneumococcal Vaccine: 50+ Ye ars (1 of 1 - PCV) 2014 Zoster Vaccines (1 of 2) 2014 Cholesterol Screening (Lipid Panel) 05/07/2022 Colorectal Cancer Screening: Colonoscopy 05/07/2022 Depression Screening 05/07/2022 HIV Screening 05/07/2022 Hepatitis C Screening 05/07/2022 Social Influencers of Health Screening 05/07/2022 COVID-19 Vaccine ( - 2023-2 5 season) 2024 Influenza Vaccine (#1) 2024 RSV Immunization Patients 60 + Years Old (1 - 1-dose 75+ series) 2039 HIB Vaccines Aged Out No longer eligi ble based on patient's age to complete this topic HPV Vaccines Aged Out No longer eligi ble based on patient's age to complete this topic Hepatitis A Vaccines Aged Out No long er eligible based on patient's age to complete this topic Hepatitis B Vaccines Aged Out No long er eligible based on patient's age to complete this topic IPV Vaccines Aged Out No longer eligi ble based on patient's age to complete this topic MMR Vaccines Aged Out No longer eligi ble based on patient's age to complete this topic Meningococcal ACWY Vaccine Aged Out N o longer eligible based on patient's age to complete this topic Meningococcal B Vacine Aged Out No lo nger eligible based on patient's age to complete this topic Pneumococcal Vaccine: Pediat rics (0 to 5 Years) and At-Risk Patients (6 to 64 Years) Aged Out No longer eligible b ased on patient's age to complete this topic RSV Immunization Patients Un ria 20 months Aged Out No longer eligible b ased on patient's age to complete this topic Varicella Vaccines Aged Out No longer eligible based on patient's age to complete this topic
== END 2024-08-01 12:59 | disposition home or self-care (01) ==
PROVIDERS: PCP Internal Medicine; Visit Provider Internal Medicine
DX: R97.20 Elevated prostate specific antigen [PSA] (principal); Z00.00 Encounter for general adult medical examination without abnormal findings; E78.5 Hyperlipidemia, unspecified; G56.03 Carpal tunnel syndrome, bilateral upper limbs; Z98.890 Other specified postprocedural states